=== PATIENT | female | born 1995 | race Caucasian/White ===

== ENCOUNTER 2017-11-09 21:36 | Emergency (ER) | payer OTHER ==
[~2017-11-09] VITALS: Ht 170.2 cm; Wt 118.4 kg
[2017-11-09 21:41] VITALS: Ht 170.2 cm; Wt 118.4 kg
[2017-11-09 22:19] LABS: BASOPHIL % 0.6 % (0-2); PLATELET COUNT 302 x10^3mcL (130-400)
[2017-11-09 22:24] LABS: UA SPECIFIC GRAVITY >=1.030 (1.005-1.035); microscopic required? YES; urine erythrocyte 3+ (NEGATIVE)
[2017-11-09 22:37] LABS: RED CELL DISTRIBUTION WIDTH 16.7 % (11.5-14.5)
[2017-11-10 00:47] VITALS: BP 132/73
== END 2017-11-10 00:47 | disposition home or self-care (01) ==
LOC: ED 21:36
PROVIDERS: Emergency Medicine
DX: O03.9 Complete or unspecified spontaneous abortion without complication (principal); Z3A.01 Less than 8 weeks gestation of pregnancy
CPT/HCPCS: 36415

== ENCOUNTER 2019-03-14 17:42 | Emergency (ER) | payer OTHER ==
[~2019-03-14] VITALS: Ht 170.2 cm; Wt 127.5 kg
[2019-03-14 17:59] VITALS: BP 146/81; Ht 170.2 cm; Wt 127.5 kg
[2019-03-14 19:38] LABS: BASOPHIL % 0.1 % (0-2); PLATELET COUNT 269 x10^3mcL (130-400); RED CELL DISTRIBUTION WIDTH 15.9 % (11.5-14.5)
[2019-03-14 19:41] LABS: CALCIUM 8.1 mg/dL (8.5-10.1); CARBON DIOXIDE 26.3 mmol/L (21-32); CHLORIDE SERUM 102 mmol/L (98-107); CREATININE SERUM 0.5 mg/dL (0.6-1.0); GFR1 > 60 mL/min; GLUCOSE SERUM 112 mg/dL (74-106); POTASSIUM SERUM 3.6 mmol/L (3.5-5.1); SODIUM SERUM 136 mmol/L (136-145)
[2019-03-14 19:45] LABS: ALBUMIN 3.5 g/dL (3.4-5.0); ALKALINE PHOSPHATASE 95 U/L (46-116); ALT/SGPT 34 U/L (14-59); AST/SGOT 11 U/L (15-37); BILIRUBIN TOTAL 0.27 mg/dL (0.20-1.00); TOTAL PROTEIN, SERUM 7.4 g/dL (6.4-8.2)
== END 2019-03-14 21:32 | disposition left against medical advice (07) ==
LOC: ED 17:42
DX: Z53.21 Procedure and treatment not carried out due to patient leaving prior to being seen by health care provider (principal)